=== PATIENT | female | born 1955 | race Caucasian/White ===

== ENCOUNTER 2018-08-02 08:40 | Inpatient (IN) | payer BC ==
[2018-10-02] MEDS ORDERED: cefOXitin 2 GM Vial ONE (06:47)
[2018-10-02] MEDS ORDERED: Acetaminophen 500 MG Tab PO ONE (09:30)
[2018-10-02] MEDS ORDERED: Celecoxib 200 MG Cap PO ONE (09:30)
[2018-10-02] MEDS ORDERED: Gabapentin 300 MG Cap PO ONE (09:30)
[2018-10-02] MEDS ORDERED: Scopolamine 1.5 MG Transdermal Patch TRDERM SCH (10:00)
[2018-10-02] MEDS ORDERED: Albuterol/Ipratropium 3.0-0.5 MG/3 ML Neb Soln NEB ONE (10:30)
[2018-10-02 10:45] LABS: HEMOGLOBIN A1C 6.3 % (4.5-6.2)
[2018-10-02] MEDS ORDERED: Ketamine 500 MG/5 ML MDV IV SCH (12:00)
[2018-10-02] MEDS ORDERED: Ketamine 50 MG in Sodium Chloride 0.9% 49.5 ML IV SCH (12:00)
[2018-10-02] MEDS ORDERED: Lidocaine 2% 100 MG/5 ML Syringe IVPUSH SCH (12:00)
[2018-10-02] MEDS ORDERED: Dexamethasone 4 MG/ML SDV ONE (12:18)
[2018-10-02] MEDS ORDERED: Propofol 200 MG/20 ML SDV ONE (12:18)
[2018-10-02] MEDS ORDERED: Rocuronium 50 MG/5 ML Vial ONE ×2 (12:18→15:04)
[2018-10-02] MEDS ORDERED: Succinylcholine 200 MG/10 ML MDV ONE (12:18)
[2018-10-02] MEDS ORDERED: Ondansetron 4 MG/2 ML SDV ONE (12:18)
[2018-10-02] MEDS ORDERED: Neostigmine Methylsulfate 1 MG/ML 5 ML Syringe ONE (12:18)
[2018-10-02] MEDS ORDERED: Glycopyrrolate 0.2 MG/ML 5 ML MDV ONE (12:18)
[2018-10-02] MEDS ORDERED: fentaNYL 250 MCG/5 ML SDV ONE ×2 (12:18→15:04)
[2018-10-02] MEDS ORDERED: Lactated Ringers 1,000 ML ONE (12:23)
[2018-10-02] MEDS ORDERED: Dextrose 5%-Lactated Ringers 1,000 ML IV SCH (13:15)
[2018-10-02] MEDS: cefOXitin 2 GM in Sodium Chloride 0.9% 50 ML IV ONE ×2 (13:50→18:22)
[2018-10-02] MEDS ORDERED: hydrOXYzine HCl 100 MG/2 ML SDV IM ONE (16:29)
[2018-10-02] MEDS ORDERED: fentaNYL 100 MCG/2 ML SDV IVPUSH ONE ×2 (16:29→16:48)
[2018-10-02] MEDS ORDERED: Insulin Lispro 100 Unit/ML 3 ML KwikPen SUBCUT PRN (17:16)
[2018-10-02] MEDS ORDERED: 50% Dextrose in Water 50 ML Syringe IVPUSH PRN (17:16)
[2018-10-02] MEDS ORDERED: hydrOXYzine HCl 100 MG/2 ML SDV IM PRN (17:16)
[2018-10-02] MEDS ORDERED: Labetalol 20 MG/4 ML Syringe IVPUSH PRN (17:16)
[2018-10-02] MEDS ORDERED: Metoclopramide 10 MG/2 ML SDV IVPUSH PRN (17:16)
[2018-10-02] MEDS ORDERED: Albuterol/Ipratropium 3.0-0.5 MG/3 ML Neb Soln INH PRN (17:16)
[2018-10-02] MEDS ORDERED: Glucagon,Human Recombinant 1 MG Vial IM PRN (17:16)
[2018-10-02] MEDS ORDERED: HYDROmorphone 1 MG/ML Syringe IV PRN (17:16)
[2018-10-02] MEDS ORDERED: HYDROmorphone 0.5 MG/0.5 ML Syringe IVPUSH PRN (17:16)
[2018-10-02] MEDS ORDERED: diphenhydrAMINE 50 MG/ML SDV IVPUSH PRN (17:16)
[2018-10-02] MEDS ORDERED: MVI, Adult with Vitamin K 10 ML, Thiamine 200 MG, Chromium/Copper/Mang/Selen/Zn 1 ML in... IV SCH ×4 (18:00)
[2018-10-02] MEDS: Pantoprazole 40 MG Vial IVPUSH SCH (18:37)
[2018-10-02] MEDS: Acetaminophen Soln 650 MG/20.3 ML UD Cup PO SCH (18:37)
[2018-10-02] MEDS: Heparin Sodium 5,000 Units/ML Vial SUBCUT SCH (18:37)
[2018-10-02] MEDS: Lidocaine 0.4%/D5W 2 GM/500 ML BAG IV SCH (18:37)
[2018-10-02] MEDS: cefOXitin 2 GM in Sodium Chloride 0.9% 50 ML IV SCH (20:10)
[2018-10-02] MEDS ORDERED: Lithium Carbonate 450 MG Tab.ER PO SCH (21:00)
[2018-10-02] MEDS: Fluticasone-Salmeterol 232-14 MCG Powder Inhalent INH SCH (21:51)
[2018-10-02] MEDS: Albuterol/Ipratropium 3.0-0.5 MG/3 ML Neb Soln INH SCH (21:56)
[2018-10-02] MEDS: Gabapentin 250 MG/5 ML Solution ML 470 ML Bottle PO SCH (21:56)
[2018-10-02] MEDS: Ondansetron 4 MG/2 ML SDV IVPUSH PRN (22:50)
[2018-10-03] MEDS: Acetaminophen Soln 650 MG/20.3 ML UD Cup PO SCH ×4 (00:59→18:15)
[2018-10-03] MEDS: Dextrose 5%-Lactated Ringers 1,000 ML IV SCH ×2 (01:04→06:59)
[2018-10-03] MEDS: cefOXitin 2 GM in Sodium Chloride 0.9% 50 ML IV SCH ×2 (01:20→08:50)
[2018-10-03] MEDS ORDERED: Iohexol 647 MG/ML 50 ML SDV PO STA (03:14)
--- NOTE | 2018-10-03 03:59 | CRLCR ---
Indication: Postprocedure lap band removal converted to gastric sleeve. Technique: Abdomen 2 views Comparison: None Findings/Impression: There are 2 submitted images after ingestion of oral contrast. Surgical drain is in the left upper quadrant. There is no sign of oral contrast extravasation. Oral contrast flows freely through the stomach into the proximal small bowel. No abnormality evident. Dictated by Lj David MD @ Oct 04 2018 8:52AM Signed by Dr. Lj David @ Oct 04 2018 8:55AM
[2018-10-03] MEDS: Heparin Sodium 5,000 Units/ML Vial SUBCUT SCH ×2 (05:43→18:15)
[2018-10-03] MEDS: Albuterol/Ipratropium 3.0-0.5 MG/3 ML Neb Soln INH SCH ×4 (07:19→21:02)
[2018-10-03] MEDS: Fluticasone-Salmeterol 232-14 MCG Powder Inhalent INH SCH ×2 (07:22→21:02)
[2018-10-03] MEDS ORDERED: Ondansetron 4 MG Tab.DIS PO PRN (08:14)
[2018-10-03] MEDS ORDERED: Dextrose 5%-Lactated Ringers 1,000 ML IV SCH (08:15)
[2018-10-03] MEDS: Metoprolol Succinate 25 MG Tab.ER PO SCH (08:46)
[2018-10-03] MEDS: Celecoxib 200 MG Cap PO SCH (08:47)
[2018-10-03] MEDS: Gabapentin 250 MG/5 ML Solution ML 470 ML Bottle PO SCH ×3 (08:50→21:02)
[2018-10-03] MEDS ORDERED: DULoxetine 30 MG Cap PO SCH (12:00)
[2018-10-03] MEDS: Lidocaine 0.4%/D5W 2 GM/500 ML BAG IV SCH (14:45)
[2018-10-03] MEDS: SCOPOLAMINE PATCH CHECK TOP SCH (14:45)
[2018-10-03] MEDS ORDERED: MVI, Adult with Vitamin K 10 ML, Thiamine 200 MG, Chromium/Copper/Mang/Selen/Zn 1 ML in... IV SCH ×4 (16:00)
--- NOTE | 2018-10-03 17:32 | PN ---
DATE OF SERVICE: 10/03/2018 SUBJECTIVE: Ev is postoperative day #1, her upper GI was normal. Blood sugars were 220 and 198. Pain has been controlled. She has been up ambulating and she is sitting in her chair. She has no other concerns or questions. OBJECTIVE: GENERAL: Ev Domingo is a 63-year-old female. She is alert and orientated. VITAL SIGNS: TPR is 99, 89, 18, and blood pressure is 123/57. HEENT: Negative. NECK: Supple. HEART: Regular rate and rhythm. LUNGS: Clear. ABDOMEN: Dressings dry and intact. Abdominal binder is on. ALCON drain put out 120 mL of a pink serosanguineous drainage. EXTREMITIES: Without peripheral edema. ASSESSMENT: Laparoscopic sleeve gastrectomy, needle liver biopsy, wedge biopsy of left lobe of liver, excision of peritoneal nodule, repair of paraesophageal diaphragmatic hernia and excision of mediastinal lipoma for morbid obesity, hepatomegaly, nodular lesion in the left lobe of liver, possibly bile duct hematoma, peritoneal nodule, periesophageal diaphragmatic hernia, and mediastinal lipoma. Date of surgery 10/02/2018. Surgeon, Maycol Kearns MD. PLAN: 1. Decrease IV to 100 mL per hour. 2. Step 2 gastric bypass diet with no cereal. 3. Dressing off, may shower. 4. Zofran ODT 4 mg every 4 hours p.r.n. nausea. 5. Communication order, 3 med cups per hour, record at bedside. 6. Medications were restarted, which she has had at home; chlorthalidone 12.5 mg p.o. daily scheduled, Cymbalta 30 mg p.o. daily scheduled, Plaquenil 400 mg p.o. at bedtime, lithium 900 mg p.o. at bedtime scheduled, Toprol-XL 25 mg p.o. daily scheduled. 7. Good pulmonary toilet. 8. We will evaluate p.r.n. or in a.m. Steffany Lay PA-C /[id number]
[2018-10-03] MEDS: Pantoprazole 40 MG Vial IVPUSH SCH (18:15)
[2018-10-03] MEDS ORDERED: Lithium Carbonate 450 MG Tab.ER PO SCH (21:00)
[2018-10-03] MEDS ORDERED: Hydroxychloroquine 200 MG Tab PO SCH (21:00)
[2018-10-03] MEDS: Ondansetron 4 MG/2 ML SDV IVPUSH PRN (21:18)
[2018-10-04] MEDS: Acetaminophen Soln 650 MG/20.3 ML UD Cup PO SCH ×2 (02:28→05:35)
[2018-10-04] MEDS: Heparin Sodium 5,000 Units/ML Vial SUBCUT SCH (05:36)
[2018-10-04] MEDS: Albuterol/Ipratropium 3.0-0.5 MG/3 ML Neb Soln INH SCH (07:10)
[2018-10-04] MEDS: Fluticasone-Salmeterol 232-14 MCG Powder Inhalent INH SCH (07:11)
[2018-10-04] MEDS: Celecoxib 200 MG Cap PO SCH (08:13)
[2018-10-04] MEDS: SCOPOLAMINE PATCH CHECK TOP SCH ×2 (08:15→08:16)
[2018-10-04] MEDS: Gabapentin 250 MG/5 ML Solution ML 470 ML Bottle PO SCH (08:19)
[2018-10-04] MEDS ORDERED: Cyanocobalamin (Vitamin B12) 1,000 MCG/ML SDV IM ONE (09:00)
[2018-10-04] MEDS ORDERED: Chlorthalidone 25 MG Tab PO SCH (09:00)
[2018-10-04] MEDS: Metoprolol Succinate 25 MG Tab.ER PO SCH (09:38)
--- NOTE | 2018-10-04 14:56 | DISCH ---
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 DISCHARGE DIAGNOSES: Laparoscopic sleeve gastrectomy, needle liver biopsy, wedge biopsy of left lobe of the liver, excision of peritoneal nodule, repair of paraesophageal diaphragmatic hernia, and excision of mediastinal lipoma, for morbid obesity, hepatomegaly, nodular lesion of the left lobe of liver, possible bile duct hematoma, peritoneal nodule, paraesophageal diaphragmatic hernia, and mediastinal lipoma. Date of surgery, 10/02/2018. Surgeon, Maycol Kearns M.D. HISTORY: Ev Domingo is a 63-year-old female with morbid obesity and increasing comorbidities. After preoperative evaluation and discussion of possible risks and possible complications, she wished to proceed with surgical procedure. HOSPITAL COURSE: Ev had her surgery on 10/02/2018. She had no operative complications. On post day #1, she was started on a step-2 gastric bypass diet with no cereal. She was started on her appropriate home meds and vital signs remained stable. On postop day #2, she received vitamin B12 of 1000 mcg IM injection. Her activity was good. Vital signs were stable. Oral intake adequate, and she was able to be discharged to home. PHYSICAL EXAMINATION: VITAL SIGNS: Ev Domingo is a 63-year-old female. VITAL SIGNS: Height is 5 feet 7 inches, weight is 323 pounds. TPR is 96.4, 79, 16. Blood pressure is 157/60. HEENT: Negative. NECK: Supple. HEART: Regular rate and rhythm. LUNGS: Clear. ABDOMEN: Sutures intact. Trocar sites healing well. Binder has been on. EXTREMITIES: With trace peripheral edema. DISPOSITION: Discharged to home. CONDITION: Stable and improving. FOLLOWUP: Followup appointment with Steffany Lay PA-C, on 10/09/2018, at 11:00 a.m. Appointment at [facility] in [place], [place]. HOME MEDICATIONS: Zofran ODT 4 mg q.4 hours p.r.n. nausea and Celebrex 200 mg p.o. daily, #14. She is to resume home medications: Celebrex 200 mg p.o. daily for 14 days, Tylenol 650 mg q.6 hours for pain, albuterol inhaler 1 to 2 puffs q.4 hours, chlorthalidone 12.5 mg p.o. daily, Cymbalta 30 mg p.o. daily, Advair inhaler 2 inhalations b.i.d., gabapentin dose changed to 300 mg 3 times a day and 300 mg at bedtime, Plaquenil 400 mg p.o. daily, lithium ER (Eskalith CR) 900 mg at bedtime, lorazepam 0.5 mg p.o. b.i.d., and metoprolol succinate (Toprol-XL) 25 mg p.o. daily. Vitamins and supplements all restarted after first postop appointment. DIET: Step-2 gastric bypass diet with no cereal until 11/03/2018. Drink 8 to 10 glasses of water a day. ACTIVITY: No lifting greater than 10 pounds for 2 weeks. Other activity: Walk 6 times daily inside your home. Driving: Do not drive for 1 week. Shower/bathing: May shower. Wound incision care: Keep site clean and dry. Wear abdominal binder for 2 weeks and then as tolerated. Notify provider if any fever, increased pain, nausea, or vomiting. SPECIAL INSTRUCTIONS: Use incentive spirometer 10 times every hour while awake for 1 week, and keep a list of protein and liquid intake and bring to clinic appointment.
--- NOTE | 2018-10-08 08:38 | OR ---
DATE OF PROCEDURE: 10/02/2018 PREOPERATIVE DIAGNOSIS: Morbid obesity. POSTOPERATIVE DIAGNOSES: 1. Morbid obesity. 2. Marked hepatomegaly. 3. Nodular lesion of left lobe of liver (probable bile duct hamartoma). 4. Peritoneal nodule near esophagogastric junction. 5. Paraesophageal diaphragmatic hernia. 6. Mediastinal lipoma. PROCEDURES PERFORMED: Diagnostic laparoscopy with: 1. Laparoscopic sleeve gastrectomy (81491). 2. Rony-Cut needle biopsy of the left lobe of the liver (59232). 3. Wedge biopsy of left lobe of liver (78753). 4. Excision of peritoneal nodule overlying stomach just below the esophagogastric junction (30942). 5. Repair of paraesophageal diaphragmatic hernia (09220). 6. Excision of mediastinal lipoma (32936). ANESTHESIA: General. ASSISTANTS: 1. Steffany Lay PA-C. 2. VIKTOR Marquez. INDICATIONS FOR PROCEDURE: This is a 63-year-old female presenting with longstanding morbid obesity and increasingly significant comorbidities. After preoperative evaluation and discussion, she wished to proceed with a laparoscopic sleeve gastrectomy. Potential risks of the procedure, including bleeding, infection, leaks from various GI tract closures, problems with bowel obstruction over time, as well as possibility of cardiopulmonary, septic, or hemorrhagic complications leading to were discussed, and the patient wishes to proceed. DETAILS OF PROCEDURE: The patient was taken to the operating room and placed in a supine position. After general endotracheal anesthesia was induced, she was converted to a lithotomy position and the abdomen was prepped and draped. At 15 cm inferior and 5 cm left of xiphoid process, a transverse incision was made and peritoneal cavity entered under direct vision with an Optiview trocar inflated to 15 mmHg pressure of CO2. Laparoscope was then reinserted. No underlying trocar insertion site injuries were seen. Following this, bilateral subcostal transversus abdominis plane blocks were placed and 5 additional trocars were placed across the upper and mid abdomen. Initial examination showed a diffusely fatty infiltrated liver and Rony-Cut needle biopsy obtained from left lobe of the liver. There was also dominant white nodule on the anterior aspect of the left lobe of the liver. This appeared to be most likely a bile duct hamartoma, but because of its size and somewhat prominent appearance, wedge biopsy was obtained at that region to confirm histologic anatomy of the lesion. As one elevated the liver, there was also a frond-like peritoneal nodule over the gastric cardia, just below the esophagogastric junction. This was excised with a LAURA stapler, and that specimen was also sent separately. This measured around 3 mm in size. The patient at that point was also noted to have paraesophageal diaphragmatic hernia with prolapsed portion of the stomach in a plane anterior to the course of the distal esophagus, along with some perigastric fat. At this point, after the biopsies and excision of the nodules were completed, the hernia was then dissected downward and the peritoneum overlying it reflected down. During the course of the dissection, a mediastinal lipoma was encountered, and to facilitate adequate crural repair, this was excised. The crural repair was accomplished with 0 Ethibond sutures, reinforced with PTFE pledgets, placed in an anterior location. At this point, attention was then taken to the sleeve gastrectomy phase of the procedure. Beginning at the mid greater curvature, the omentum was divided away from the stomach with Harmonic Scalpel. This continued upward to and through the angle of His, removing both highest and posterior short gastric vessels. The pylorus was enlarged with electrocautery, and division of the omentum away from the stomach distally then commenced, taking that dissection down to 2 cm proximal to the pylorus. At that point, the initial course of the staple lines for the sleeve gastrectomy were mapped out with electrocautery, beginning 2 cm proximal to the pylorus and extending across the antrum and underneath the incisura angularis, maintaining adequate distance from that location to avoid kinking off of the sleeve gastrectomy. First 3 firings of the gastrectomy were then accomplished with LAURA black loads. At that point, a 32-[place] suction catheter was placed per Anesthesia orally and then manipulated along the lesser curvature of the stomach and into the antrum. This was brought up against the lesser curvature of the stomach, where it was then placed on suction. The remainder of sleeve gastrectomy was then completed with the stapler up against the 32-[place] tube, beginning with some reinforced black loads and ending with some reinforced purple loads. At that point, the gastrectomy was completed and the staple lines were inspected. These all appeared to be intact. The sleeve gastrectomy was then reinforced with fibrin sealant, focusing on the esophagogastric junction particularly, but to some extent along the entire length. The omentum was then tacked up against the sleeve gastrectomy either by pulling up against the fibrin sealant, where it would come up easily, or with some 3-0 Vicryl seromuscular stitches where it was more resistant to staying up against the stomach. At that point, leak test was accomplished with injection of air into the 32-[place] catheter while the pylorus was being compressed, and the area was submerged with an antibiotic-containing saline solution. No bleeding or evidence of leaks were seen, and at that point, the gastrointestinal balloon catheter was removed. The specimen was then removed through the left lateral trocar site and Mika-August drain was taken through the left lateral trocar site and positioned up against the area of the esophagogastric junction and from there into the splenic fossa. With no further problems noted, trocars were removed and peritoneal cavity deflated. Incisions were closed with 4-0 Vicryl skin stitch and the drains affixed with some 4-0 Vicryl stitch as well. The patient was taken to the recovery room in satisfactory condition. Physician certified ophthalmic surgical assistant, Steffany Lay, played an essential role in assisting in this case, helping to position the patient, retract structures as needed, as well as suturing and cutting sutures when indicated. Her presence improved patient safety and decreased operative time. Maycol Kearns MD /[id number]
== END 2018-10-04 10:45 | disposition home or self-care (01) | DRG 403 ==
LOC: JP.MS 10-02 09:44 → JP.SDS 10-02 09:45 → EDSTATUS 10-02 11:30 → JP.2SS 10-02 16:15
PROVIDERS: ADMIT Surgery; ATTEND Surgery
PROC: 0DB64Z3 Excision of Stomach, Percutaneous Endoscopic Approach, Vertical (ICD-10-PCS; principal; 2018-10-02)
PROC: 0WBC4ZX Excision of Mediastinum, Percutaneous Endoscopic Approach, Diagnostic (ICD-10-PCS; 2018-10-02)
PROC: 0FB24ZX Excision of Left Lobe Liver, Percutaneous Endoscopic Approach, Diagnostic (ICD-10-PCS; 2018-10-02)
PROC: 0FB04ZX Excision of Liver, Percutaneous Endoscopic Approach, Diagnostic (ICD-10-PCS; 2018-10-02)
PROC: 0DBW4ZX Excision of Peritoneum, Percutaneous Endoscopic Approach, Diagnostic (ICD-10-PCS; 2018-10-02)
PROC: 0BQT4ZZ Repair Diaphragm, Percutaneous Endoscopic Approach (ICD-10-PCS; 2018-10-02)
DX: E66.01 Morbid (severe) obesity due to excess calories (principal); Z68.43 Body mass index [BMI] 50.0-59.9, adult; R16.0 Hepatomegaly, not elsewhere classified; K44.9 Diaphragmatic hernia without obstruction or gangrene; D17.4 Benign lipomatous neoplasm of intrathoracic organs; K66.8 Other specified disorders of peritoneum; K76.9 Liver disease, unspecified; I10 Essential (primary) hypertension; J45.20 Mild intermittent asthma, uncomplicated; G47.33 Obstructive sleep apnea (adult) (pediatric); Z99.89 Dependence on other enabling machines and devices; M19.90 Unspecified osteoarthritis, unspecified site; Z85.828 Personal history of other malignant neoplasm of skin; F41.1 Generalized anxiety disorder; F31.9 Bipolar disorder, unspecified; G60.8 Other hereditary and idiopathic neuropathies; Z96.659 Presence of unspecified artificial knee joint; Z88.0 Allergy status to penicillin; K76.0 Fatty (change of) liver, not elsewhere classified; K58.9 Irritable bowel syndrome, unspecified; R73.03 Prediabetes; M19.91 Primary osteoarthritis, unspecified site; N60.99 Unspecified benign mammary dysplasia of unspecified breast; I73.00 Raynaud's syndrome without gangrene; R76.0 Raised antibody titer; R20.2 Paresthesia of skin; R60.9 Edema, unspecified; Z87.898 Personal history of other specified conditions
CPT/HCPCS: 36415; 74240; 80053; 82962; 83036; 83735; 83880; 85025; 85027; 86850; 86900; 86901; 88304; 88305; 88307; 88313; 94640; A9270-GY; C9113; J0171; J0330; J0694; J1100; J1644; J1815; J2001; J2405; J2704; J2710; J2795; J3010; J3410; J3411; J3420; J3490; J7042; J7050; J7120; J7620-GY; Q9967